=== PATIENT | male | born 1995 | race Caucasian/White ===

== ENCOUNTER → 2020-11-01 | Outpatient (CLI) | payer OTHER ==
--- NOTE | 2020-11-02 07:40 | PFTRPT ---
Site: [facility], [address] [place] [address], [id number] ID: [id number] Name: HARJEET FRANZ Visit Date: 11/01/2020 Second ID: [id number] Referring Doctor: Chung Lin Reviewing Doctor: Justin Graf MD Applications Engineering Manager: Albin BASS RRT Age: 25 : 1995 Sex: Male Race: Height: 72.00 Inches Weight: 213.00 Lbs BSA: 2.19 Order IDs: [id number] Requested Test(s): <RESP-PFT.PFT B/A> Diagnosis: DYSPNEA test appear to be valid, although the ATS standard for "end of test" was not met. Pt was given four puffs of albuterol for post bronchodilator. Review Status: Not Reviewed Pre-Bronch Post-Bronch Pred Actual %Pred Actual %Chng SPIROMETRY FVC (L) 5.86 7.35 125 7.48 1 FEV1 (L) 4.78 5.22 109 5.52 5 FEV1/FVC (%) 82 71 86 74 3 FEF 25% (L/sec) 8.84 8.05 91 9.15 13 FEF 50% (L/sec) 5.85 4.24 72 4.92 16 FEF 75% (L/sec) 2.29 1.94 84 2.18 12 FEF 25-75% (L/sec) 4.79 3.78 78 4.38 15 FEF Max (L/sec) 10.69 12.77 119 12.88 FIVC (L) 7.30 7.46 2 FIF 50% (L/sec) 5.57 8.77 157 10.52 19 FIF Max (L/sec) 9.60 10.68 11 MVV (L/min) 188 222 118 Expiratory Time (sec) 6.19 7.39 19 Back Extrap Vol (L) 0.11 0.16 41 Time To FEFmax (sec) 0.065 0.077 19 LUNG VOLUMES SVC (L) 5.61 7.57 135 IC (L) 3.70 6.32 170 ERV (L) 1.91 1.25 65 TGV (L) 3.59 4.03 112 RV (Pleth) (L) 1.68 2.77 165 TLC (Pleth) (L) 7.29 10.35 141 RV/TLC (Pleth) (%) 23 27 116 DIFFUSION DLCOunc (ml/min/mmHg) 36.71 43.89 119 DL/VA (ml/min/mmHg/L) 5.04 4.64 92 VA (L) 7.29 9.46 129 BHT (sec) 9.88 IVC (L) 7.57 TLC (SB) (L) 9.61 AIRWAYS RESISTANCE Raw (cmH2O/L/s) 1.45 0.83 56 Gaw (L/s/cmH2O) 1.03 1.23 119 sRaw (cmH2O*s) 4.76 3.75 78 sGaw (1/cmH2O*s) 0.20 0.27 134
== END ==
LOC: M CARPUL 09:44
PROVIDERS: ATTEND Physician Assistant
DX: R06.00 Dyspnea, unspecified (principal)